=== PATIENT | female | born 1965 | race African-American/Black ===

== ENCOUNTER 2020-04-02 19:42 | Inpatient (IN) | payer OTHER ==
[~2020-04-02] VITALS: Ht 170.2 cm; Wt 67.1 kg
[~2020-04-02 19:42] MED LIST: ACET-2708 MT; ALPR0.5T PO; ASPI-518; ATOR-2 PO; BIRTH CONTROL; DIVA-73 PO; DOCU-150 PO; ESCI10TA61 PO; FLUT1DIS; FURO20TA4 MT; GABA-531 PO; IBUP-2029 PO; IBUPROFEN; LOSA25TA26 PO; MECL12.5; METO-396 MT; MIDO2.5T PO; OMEP20CA14 PO; SPIR25TA6 PO; WARF6TAB48 MT
[2020-04-02 20:45] LABS: BASOPHILS % 0.7 % (0.0-2.0); EOSINOPHILS % 1.5 % (0.0-5.0); HEMATOCRIT. 36.5 % (36.0-48.0); HEMOGLOBIN. 12.2 g/dL (12.0-16.0); LYMPHOCYTES % 39.1 % (20.0-50.0); MEAN CORPUSCULAR HEMOGLOBIN 28.7 pg (28.0-32.0); MEAN CORPUSCULAR VOLUME 85.6 fL (81.0-99.0); MEAN PLATELET VOLUME 9.7 fl (7.4-10.4); MONOCYTES % 7.4 % (2.0-8.0); NEUTROPHILS % 51.3 % (40.0-76.0); PLATELET 195 x1000/uL (130-400); RED BLOOD CELL COUNT 4.26 mill/uL (4.2-5.4); RED CELL DISTRIBUTION WIDTH 13.5 % (11.6-14.6)
[2020-04-02] MEDS ORDERED: LORAZEPAM 2MG/ML CPJ IV ONE ×2 (20:45→21:00)
[2020-04-02] MEDS ORDERED: LORAZEPAM 2MG/ML CPJ ONE ×2 (20:51→20:55)
[2020-04-02 20:55] LABS: PROTHROMBIN TIME 10.9 sec (9.6-11.0)
[2020-04-02 21:11] LABS: CHLORIDE 110 mEq/L (98-107)
[2020-04-02 21:15] LABS: ETHANOL BLOOD < 10 mg/dL
[2020-04-02 21:18] LABS: LDL CHOLESTEROL 64 mg/dL (5-100)
[2020-04-02 21:36] LABS: VALPROIC ACID < 3.0 ug/mL (50-100)
[2020-04-02] MEDS ORDERED: SODIUM CHLORIDE 0.9% 500 ML IV ONE (22:15)
[2020-04-02 22:21] LABS: CLARITY URINE CLEAR (CLEAR); COLOR URINE YELLOW (YELLOW); KETONES URINE NEGATIVE (NEGATIVE); LEUKOCYTE ESTERASE URINE NEGATIVE (NEGATIVE); NITRITE URINE NEGATIVE (NEGATIVE); OCCULT BLOOD URINE NEGATIVE (NEGATIVE); PH URINE 6.5 (4.5-8.0); PROTEIN URINE NEGATIVE (NEGATIVE); SPECIFIC GRAVITY URINE 1.046 (1.005-1.030); UROBILINOGEN URINE 0.2 E.U./dL (0.2-1.0)
[2020-04-02 22:36] LABS: *AMPHETAMINES SCREEN URINE NEGATIVE (NEGATIVE); *BARBITURATES SCREEN URINE NEGATIVE (NEGATIVE); *BENZODIAZEPINES SCREEN URINE NEGATIVE (NEGATIVE); *COCAINE SCREEN URINE NEGATIVE (NEGATIVE); METHADONE URINE SCREEN NEGATIVE (NEGATIVE); OPIATES URINE SCREEN NEGATIVE (NEGATIVE)
[2020-04-02 22:37] LABS: CANNABINOID URINE SCREEN NEGATIVE (NEGATIVE); PHENCYCLIDINE URINE SCREEN NEGATIVE (NEGATIVE)
[2020-04-02 23:45] VITALS: BP 100/68
[2020-04-03] MEDS ORDERED: LORAZEPAM 2MG/ML CPJ IV PRN (00:45)
[2020-04-03] MEDS ORDERED: NITROGLYCERIN 0.4MG TABLET SL SL PRN (00:45)
[2020-04-03] MEDS ORDERED: MORPHINE SULFATE 2 MG/ML CPJ (NOT FOR IM USE) IV PRN (00:45)
[2020-04-03] MEDS ORDERED: LEVO500T89 MT (00:52)
[2020-04-03] MEDS ORDERED: METO-385 PO (00:52)
[2020-04-03 04:00] VITALS: BP 102/71
[2020-04-03 07:05] LABS: BASOPHILS % 0.5 % (0.0-2.0); EOSINOPHILS % 3.1 % (0.0-5.0); HEMATOCRIT. 31.3 % (36.0-48.0); HEMOGLOBIN. 10.5 g/dL (12.0-16.0); MEAN CORPUSCULAR HEMOGLOBIN 28.6 pg (28.0-32.0); MEAN CORPUSCULAR VOLUME 85.5 fL (81.0-99.0); MEAN PLATELET VOLUME 9.5 fl (7.4-10.4); MONOCYTES % 8.8 % (2.0-8.0); NEUTROPHILS % 42.6 % (40.0-76.0); PLATELET 158 x1000/uL (130-400); RED BLOOD CELL COUNT 3.67 mill/uL (4.2-5.4); RED CELL DISTRIBUTION WIDTH 13.5 % (11.6-14.6)
[2020-04-03 07:45] LABS: CHLORIDE 114 mEq/L (98-107)
[2020-04-03 08:00] VITALS: BP 103/56
[2020-04-03] MEDS ORDERED: METOPROLOL TARTRATE 25MG TABLET PO SCH (09:00)
[2020-04-03] MEDS: ASPIRIN 325MG EC TABLET PO SCH (09:00)
[2020-04-03] MEDS ORDERED: ENOXAPARIN 40MG/0.4ML SYR SUBCUT SCH (09:00)
[2020-04-03] MEDS ORDERED: POTASSIUM CHLORIDE 20MEQ TABLET SR PO NR (10:15)
[2020-04-03] MEDS: ONDANSETRON HCL 4MG/2ML INJ IV PRN (10:46)
[2020-04-03 16:00] VITALS: BP 104/81
[2020-04-03] MEDS: ENOXAPARIN 40MG/0.4ML SYR SUBCUT SCH (16:31)
[2020-04-03] MEDS: GABAPENTIN 300MG CAPSULE PO SCH (16:31)
[2020-04-03] MEDS: KETOROLAC 15MG/ML VIAL IV PRN (16:31)
[2020-04-03 20:00] VITALS: BP 105/61
[2020-04-03] MEDS: CARVEDILOL 3.125 MG TABLET PO SCH (20:45)
[2020-04-03] MEDS: VALPROIC ACID 250MG CAPSULE PO SCH (21:14)
[2020-04-04] VITALS: BP 110/60
[2020-04-04 04:00] VITALS: BP 100/47
[2020-04-04] MEDS: KETOROLAC 15MG/ML VIAL IV PRN ×2 (04:40→20:54)
[2020-04-04] MEDS: VALPROIC ACID 250MG CAPSULE PO SCH ×3 (06:04→20:53)
[2020-04-04 08:00] VITALS: BP 94/62
[2020-04-04] MEDS: LOSARTAN POTASSIUM 25 MG TABLET PO SCH (09:00)
[2020-04-04] MEDS: CARVEDILOL 3.125 MG TABLET PO SCH ×2 (09:00→20:54)
[2020-04-04] MEDS: GABAPENTIN 300MG CAPSULE PO SCH ×2 (09:40→17:46)
[2020-04-04] MEDS: ASPIRIN 325MG EC TABLET PO SCH (09:40)
[2020-04-04 12:00] VITALS: BP 80/44
[2020-04-04] MEDS ORDERED: SODIUM CHLORIDE 0.9% 500 ML IV NR ×2 (13:00)
[2020-04-04] MEDS ORDERED: VALP250C3 PO (13:53)
[2020-04-04] MEDS ORDERED: COR3 PO (13:53)
[2020-04-04] MEDS ORDERED: GABA-531 PO (13:53)
[2020-04-04] MEDS ORDERED: SPIR25TA6 PO (13:53)
[2020-04-04] MEDS ORDERED: LOSA25TA3 PO (13:53)
[2020-04-04] MEDS: ENOXAPARIN 40MG/0.4ML SYR SUBCUT SCH (14:36)
[2020-04-04 16:00] VITALS: BP 96/58
[2020-04-04 20:00] VITALS: BP 111/68
[2020-04-05] VITALS (7 sets, daily range): BP systolic 98–128; BP diastolic 60–82
[2020-04-05] MEDS: ONDANSETRON HCL 4MG/2ML INJ IV PRN (00:04)
[2020-04-05] MEDS ORDERED: HYDROCODONE/ACETAMINOPHEN 5/325MG TABLET PO PRN (00:30)
[2020-04-05] MEDS ORDERED: POTASSIUM CHLORIDE 20MEQ TABLET SR PO NR (00:30)
[2020-04-05] MEDS: VALPROIC ACID 250MG CAPSULE PO SCH ×2 (05:11→13:24)
[2020-04-05] MEDS: GABAPENTIN 300MG CAPSULE PO SCH ×2 (08:19→16:11)
[2020-04-05] MEDS: CARVEDILOL 3.125 MG TABLET PO SCH (08:20)
[2020-04-05] MEDS: LOSARTAN POTASSIUM 25 MG TABLET PO SCH (08:20)
[2020-04-05] MEDS: ENOXAPARIN 40MG/0.4ML SYR SUBCUT SCH (13:25)
== END 2020-04-05 18:55 | disposition home health service (06) | DRG 45 ==
LOC: ER 19:42 → 8WST 22:22 → MERGE 22:22 → ENRESERV 23:19
PROVIDERS: ADMIT Internal Medicine; ATTEND Internal Medicine
DX: I63.9 Cerebral infarction, unspecified (principal); R53.1 Weakness; I69.354 Hemiplegia and hemiparesis following cerebral infarction affecting left non-dominant side; G40.909 Epilepsy, unspecified, not intractable, without status epilepticus; E87.6 Hypokalemia; I50.22 Chronic systolic (congestive) heart failure; I42.9 Cardiomyopathy, unspecified; I11.0 Hypertensive heart disease with heart failure; E78.00 Pure hypercholesterolemia, unspecified; E87.8 Other disorders of electrolyte and fluid balance, not elsewhere classified; S00.12XA Contusion of left eyelid and periocular area, initial encounter; Y09 Assault by unspecified means; W18.39XA Other fall on same level, initial encounter; Y93.89 Activity, other specified; Y92.89 Other specified places as the place of occurrence of the external cause; Y99.8 Other external cause status; Z95.1 Presence of aortocoronary bypass graft; Z91.013 Allergy to seafood; Z91.018 Allergy to other foods; Z79.2 Long term (current) use of antibiotics; Z79.01 Long term (current) use of anticoagulants; Z79.899 Other long term (current) drug therapy
CPT/HCPCS: 36415; 70496; 70551; 71045; 80048; 80053; 80165; 80305; 80320; 81003; 82542; 82962; 83721; 84484; 85025; 93005; 96374; 97162; 97530; 99285; J1650; J1885; J2060; J2405; J7040; G0480